=== PATIENT | female | born 1980 | race Caucasian/White ===

== ENCOUNTER → 2017-05-14 | Outpatient (CLI) | payer OTHER ==
[~2017-05-14] VITALS: Ht 152.4 cm; Wt 68.0 kg
[~2017-05-14] MED LIST: PRENATAL TABLE1 EAC3 PO
[2017-05-14 09:06] VITALS: BP 124/65
== END | disposition home or self-care (01) ==
LOC: IVINF 09:00
DX: Z31.82 Encounter for Rh incompatibility status (principal); Z3A.00 Weeks of gestation of pregnancy not specified
CPT/HCPCS: 96372; J2790

== ENCOUNTER 2017-07-28 05:18 | Inpatient (IN) | payer OTHER ==
[~2017-07-28] VITALS: Ht 152.4 cm; Wt 69.0 kg
[2017-07-28 05:51] VITALS: BP 131/66
[2017-07-28 06:06] LABS: EOSINOPHIL (%) 1.1 % (0-5); EOSINOPHIL COUNT 0.1 K/uL (0-0.3); HEMATOCRIT 37.6 % (36.0-46.0); IMMATURE GRANULOCYTE (%) 0.6 % (0.0-0.7); IMMATURE GRANULOCYTE COUNT 0.1 K/uL; LYMPHOCYTE COUNT 2.5 K/uL (1.0-2.8); MCH 31.5 PG (29.0-34.0); MCHC 33.5 G/DL (30.0-36.0); MEAN PLAT.VOLUME 11.6 uM^3 (9.5-12.4); MONOCYTE (%) 5.3 % (3-12); MONOCYTE COUNT 0.5 K/uL (0-0.8); NEUTROPHIL (%) 68.3 % (45-76); PLATELET COUNT 175 K/uL (156-360); RBC DIS.WIDTH-CV 13.4 % (11.8-14.6); RBC DIS.WIDTH-SD 46.1 % (39-53); WHITE BLOOD COUNT 10.2 K/uL (4.1-10.2)
[2017-07-28 06:17] LABS: CHLORIDE 104 mEq/L (99-109); POTASSIUM 3.6 mEq/L (3.7-5.4); SODIUM 138 mEq/L (136-147)
[2017-07-28 06:19] LABS: GLUCOSE 93 mg/dL (70-99)
[2017-07-28 06:21] LABS: ANION GAP 11 MEQ/L (2-14); TOTAL BILIRUBIN 0.8 mg/dL (0.0-1.0)
[2017-07-28 06:23] LABS: ALKALINE PHOSPHATASE 112 IU/L (3-129); GFR ESTIMATE (CALCULATED) > 59 mL/min/
[2017-07-28 06:24] LABS: UREA NITROGEN (BUN) 10 mg/dL (9-23)
[2017-07-28 07:35] LABS: Estimated Average Glucose 108 mg/dL (70-123); HEMOGLOBIN A1c (GLYCOHEMOGLOB) 5.4 % HGB (Below 5.7)
[2017-07-28 10:40] VITALS: BP 109/72
[2017-07-28 11:30] VITALS: BP 100/63
[2017-07-28 13:30] VITALS: BP 90/54
[2017-07-28 17:32] VITALS: BP 101/53
[2017-07-29 07:23] VITALS: BP 104/56
[2017-07-29 10:00] LABS: EOSINOPHIL (%) 0.8 % (0-5); EOSINOPHIL COUNT 0.1 K/uL (0-0.3); HEMATOCRIT 31.6 % (36.0-46.0); IMMATURE GRANULOCYTE (%) 0.7 % (0.0-0.7); IMMATURE GRANULOCYTE COUNT 0.1 K/uL; INSTRUMENT ABS NEUTROPHIL CT 9.6 K/uL; LYMPHOCYTE COUNT 1.7 K/uL (1.0-2.8); MCH 31.4 PG (29.0-34.0); MCHC 33.2 G/DL (30.0-36.0); MCV 94.6 FL (83-99); MEAN PLAT.VOLUME 11.1 uM^3 (9.5-12.4); MONOCYTE (%) 5.9 % (3-12); MONOCYTE COUNT 0.7 K/uL (0-0.8); NEUTROPHIL (%) 78.3 % (45-76); NEUTROPHIL COUNT 9.6 K/uL (1.8-6.4); PLATELET COUNT 165 K/uL (156-360); RBC DIS.WIDTH-CV 13.7 % (11.8-14.6); RBC DIS.WIDTH-SD 47.7 % (39-53); RED BLOOD COUNT 3.34 M/uL (3.80-5.20); WHITE BLOOD COUNT 12.2 K/uL (4.1-10.2)
[2017-07-29 11:08] VITALS: BP 118/75
[2017-07-29 15:12] VITALS: BP 114/65
[2017-07-29 22:45] VITALS: BP 117/61
[2017-07-30 03:43] VITALS: BP 101/52
[2017-07-30 07:18] VITALS: BP 102/54
[2017-07-30 11:05] VITALS: BP 114/67
[2017-07-30] MEDS ORDERED: IBUPROFEN800 MG PO (12:35)
[2017-07-30] MEDS ORDERED: ENDOCET 5-3251 EACH PO (12:35)
[2017-07-30 14:40] VITALS: BP 116/67
== END 2017-07-30 15:08 | disposition home or self-care (01) | DRG 765 ==
LOC: 2WEST 05:18 → 2SOUTH 10:49 → 2WEST 07-30 15:08
PROVIDERS: Obstetrics & Gynecology
PROC: 10D00Z1 Extraction of Products of Conception, Low, Open Approach (ICD-10-PCS; principal; 2017-07-28)
DX: O34.211 Maternal care for low transverse scar from previous cesarean delivery (principal); O24.420 Gestational diabetes mellitus in childbirth, diet controlled; O36.5930 Maternal care for other known or suspected poor fetal growth, third trimester, not applicable or unspecified; O99.02 Anemia complicating childbirth; D62 Acute posthemorrhagic anemia; O34.29 Maternal care due to uterine scar from other previous surgery; O26.893 Other specified pregnancy related conditions, third trimester; Z67.11 Type A blood, Rh negative; Z3A.39 39 weeks gestation of pregnancy; Z37.0 Single live birth
CPT/HCPCS: 80053; 83030; 83036; 85025; 86850; 86870; 86900; 86901; 86905; 86920; J0690; J1170; J2790; J7120